=== PATIENT | male | born 2000 | race Caucasian/White ===

== ENCOUNTER 2018-06-10 09:17 | Emergency (ER) | payer SELFPAY ==
[2018-06-10 09:33] VITALS: BP 140/75; TEMP 97.9; O2SAT 97
--- NOTE | 2018-06-10 09:55 | ED.PDOC ---
History of Present Illness - General Chief Complaint: General Stated Complaint: Not feeling well Time Seen by Provider: 06/10/18 09:24 Source: patient Exam Limitations: no limitations - History of Present Illness Initial Comments: the patient is a 18-year-old male presenting to the emergency room secondary to what is probably symptoms from sleep deprivation. The patient has not had good sleep for the last 3 nights for various reasons. No history of any bipolar disorder. He denies any drug use. No [id number] medication use. No family history of any significant medical problems. No trauma. No recent sinusitis. He reports feeling mentally slow. He reports that he feels like he is in a fall. He reports that he does not taste his food very well. All this is over the last couple of days only. He feels a little less coordinated than normal. He is pleasant and cooperative. No visual field changes. No hearing changes. No focal physical findings. No increased redness that would go with carbon monoxide poisoning. he denies confusion, depression or high-risk behaviors. Timing/Duration: unsure Severity: moderate Improving Factors: nothing Worsening Factors: nothing Associated Symptoms: loss of appetite, malaise Allergies/Adverse Reactions: Allergies NO KNOWN ALLERGY Allergy (Verified 06/10/18 09:32) Home Medications: Ambulatory Orders Temazepam [Restoril] 7.5 mg PO BEDTIME PRN #3 cap 06/10/18 Review of Systems - Review of Systems Constitutional: States: malaise EENTM: States: see HPI Respiratory: States: no symptoms reported Cardiology: States: no symptoms reported Gastrointestinal/Abdominal: States: no symptoms reported Genitourinary: States: no symptoms reported Musculoskeletal: States: no symptoms reported Skin: States: no symptoms reported Neurological: States: see HPI Endocrine: States: no symptoms reported All other Systems: No Change from Baseline Past Medical History (General) - Patient Medical History Hx Stroke: No Hx Congestive Heart Failure: No Hx Diabetes: No Hx MRSA: No - Vaccination History Hx Influenza Vaccination: Yes - 2018 Hx Pneumococcal Vaccination: No - Social History Hx Tobacco Use: No Hx Alcohol Use: Yes - Social Family Medical History - Family History Father Family History: Unknown Living Status: Still Living Physical Exam - Physical Exam General Appearance: Alert, No apparent distress Eye Exam: bilateral normal Ears, Nose, Throat: hearing grossly normal, normal ENT inspection, normal pharynx, other - no abnormal nystagmus. Visual biggs appear to be intact. Acuity appears to be intact. No fasciculations of the tongue. No speech difficulties. No swallowing problems. 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 The patient will be written for 3 tablets of Restoril to be taken at night only. Only one tablet each night. He is determined to make a several hour drive home today before he goes to bed. He does need to drive carefully. For that trip, short-acting stimulant such as energy drinks or coffee or even a single tablet of Sudafed may help keep him awake for the drive. Obviously if he is getting too drowsy he should pull off to the side of the road. His symptoms of sleep deprivation will likely persist until he gets a good night's sleep. He needs to follow back up with his primary care doctor in his hometown next week if he is still having any persistent symptoms. ER warnings are given.random fingerstick is 92 06/10/18 10:04 06/10/18 10:04 Departure - Departure Clinical Impression: Sleep deprivation Disposition: Discharge to Home or Self Care Condition: Fair Departure Forms: ED Discharge - Pt. Copy, Patient Portal Self Enrollment Diet: regular diet Activity: increase activity as tolerated Prescriptions: Temazepam [Restoril] 7.5 mg PO BEDTIME PRN #3 cap PRN Reason: Insomnia Home Medications: Ambulatory Orders Temazepam [Restoril] 7.5 mg PO BEDTIME PRN #3 cap 06/10/18 Additional Instructions: the patient is a 18-year-old male presenting to the emergency room with symptoms that are consistent with sleep deprivation. The patient will be written for 3 tablets of Restoril to be taken at night only. Only one tablet each night. He is determined to make a several hour drive home today before he goes to bed. He does need to drive carefully. For that trip, short-acting stimulant such as energy drinks or coffee or even a single tablet of Sudafed may help keep him awake for the drive. Obviously if he is getting too drowsy he should pull off to the side of the road. His symptoms of sleep deprivation will likely persist until he gets a good night's sleep. He needs to follow back up with his primary care doctor in his hometown next week if he is still having any persistent symptoms. ER warnings are given.
== END 2018-06-10 10:14 | disposition home or self-care (01) ==
LOC: ER 09:17
DX: Z72.820 Sleep deprivation (principal)